=== PATIENT | male | born 1955 | race Hispanic/Latino ===

== ENCOUNTER → 2019-02-19 | Outpatient (CLI) | payer MEDICARE ==
[~2019-02-19] MED LIST: AMLODIPINE BESY10 MG PO; GLIPIZIDE XL10 MG PO; HYDRALAZINE HC100 MG PO; LASIX80 MG PO; METOPROLOL TAR100 MG PO
--- NOTE | 2019-02-19 12:12 | Diagnostic Imaging Report ---
Right ankle, 3 views. History: Right ankle pain. Findings: There is mild diffuse soft tissue swelling. Vascular opacifications are present. Bone mineralization is normal. There is no evidence of fracture or dislocation. There are no lytic or sclerotic lesions. There is sclerosis of the medial talar dome with subchondral lucency. There is mild narrowing of the mortise joint. Plantar and posterior calcaneal spurs are present. 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 Consider further evaluation with MRI. Signed by: Dion Baig on 02/19/2019 12:09 PM
--- NOTE | 2019-02-19 12:16 | Diagnostic Imaging Report ---
Right shoulder, 2 views. History: Right shoulder pain. Findings: The soft tissues are normal. Bone mineralization is normal. There is no evidence of fracture, AC separation, or dislocation. There are no lytic or sclerotic lesions. The inferior spurring of the AC joint is noted. There is severe glenohumeral joint space narrowing with osteophytosis. There is subchondral sclerosis and subchondral cyst formation involving the superior humeral head. IMPRESSION: Right shoulder DJD. Signed by: Dion Baig on 02/19/2019 12:13 PM
== END ==
LOC: RAD 10:47
PROVIDERS: ATTEND Internal Medicine
DX: M25.511 Pain in right shoulder (principal); M19.011 Primary osteoarthritis, right shoulder; M25.571 Pain in right ankle and joints of right foot

== ENCOUNTER → 2019-03-05 | Outpatient (CLI) | payer MEDICARE ==
--- NOTE | 2019-03-05 10:27 | Diagnostic Imaging Report ---
MRI of the right ankle without contrast. History: Ankle pain. Avascular process. History of fall. Weakness Technique: Utilizing a high-field 1.5T magnet, the following sequences were acquired: PD FS in all 3 planes with additional axial PD. Comparison: Radiographs 02/19/2019 Findings: Achilles tendon and plantar fascia: Midsubstance degeneration and thickening involving the medial cord of the plantar fascia. Small bone spur at the inferior calcaneal insertion site. Small posterior calcaneal bone spur. The Achilles tendon and plantar fascial tissues are otherwise intact Cartilage and bone: 1.3 cm medial talar dome osteochondral lesion with associated subchondral cystic change and bone marrow edema. Minimal depression of the overlying cortex. No free fragmentation or sign of instability. The subtalar joints are intact. Scattered degenerative changes are seen. Negative for fracture, osteonecrosis, or dislocation. Medial ankle: The deltoid ligament complex is intact. The medial flexor tendons are normal. There is a physiologic amount of fluid within the tendon sheath of FHL. Lateral ankle: The anterior talofibular, calcaneofibular, and posterior talofibular ligaments are intact. The syndesmotic ligaments are intact. The peroneal tendons are normal. Anterior ankle: The anterior extensor tendons are normal. Other findings: Small tibiotalar joint effusion and mild synovitis Impression: Medial talar dome osteochondral lesion with subchondral cystic change and bone marrow edema. No free fragmentation or sign of instability. Midsubstance degeneration and thickening involving the medial cord of the plantar fascia. Small bone spur at the inferior calcaneal insertion site. Small posterior calcaneal bone spur. The Achilles tendon and plantar fascial tissues are otherwise intact Signed by: Dr. Maxime Stern M.D. on 03/05/2019 10:24 AM
== END ==
LOC: MRI 08:19
PROVIDERS: ATTEND Internal Medicine
DX: M25.571 Pain in right ankle and joints of right foot (principal); M77.31 Calcaneal spur, right foot; R60.9 Edema, unspecified

== ENCOUNTER → 2021-03-02 | Outpatient (CLI) | payer MEDICARE | LOC: US 07:16 | PROVIDERS: ATTEND Internal Medicine | DX: I73.9 Peripheral vascular disease, unspecified (principal); I71.4 Abdominal aortic aneurysm, without rupture | CPT/HCPCS: 76700; 93925 ==